=== PATIENT | female | born 1990 | race American Indian/Alaskan Native ===

== ENCOUNTER 2021-02-27 14:56 | Emergency (ER) | payer SELFPAY ==
[2021-02-27 15:02] VITALS: BP 117/80
== END 2021-02-27 22:20 | disposition left against medical advice (07) ==
LOC: ED 14:56
DX: K85.90 Acute pancreatitis without necrosis or infection, unspecified (principal); R11.2 Nausea with vomiting, unspecified; Z53.21 Procedure and treatment not carried out due to patient leaving prior to being seen by health care provider

== ENCOUNTER 2021-03-03 05:24 | Emergency (ER) | payer SELFPAY ==
[2021-03-03] MEDS ORDERED: LORazepam 2 MG/ML VIAL IV ONE (08:21)
[2021-03-03] MEDS ORDERED: SODIUM CHLORIDE 0.9% 1000 ML 1,000 ML IV ONE (08:21)
[2021-03-03] MEDS ORDERED: diphenhydrAMINE 50 MG/ML VIAL IV ONE (08:21)
[2021-03-03] MEDS ORDERED: PROCHLORPERAZINE EDISYLATE 10 MG/2 ML VIAL IV ONE (08:21)
--- NOTE | 2021-03-03 08:26 | Emergency Department Report ---
ED Abdominal Pain HPI - General Chief Complaint: Abdominal Pain Stated Complaint: ABD PAIN Time Seen by Provider: 03/03/21 08:18 Source: EMS Mode of arrival: Ambulatory Limitations: No Limitations - History of Present Illness Initial Comments: 30 year old female with hx of recurrent pancreatitis presents to ED with complaints of severe LUQ abdominal pain. Patient states that her symptoms started about 7 days ago. She thinks its her pancreatitis but unsure. She reports associated n/v and in ability to keep anything down. She states that her last BM was this morning and normal. She denies any UTI or abnl vag symptoms. She denies fever or chills. She states she does not drink and never drank. She denies ilicit drug use. She denies any abdominal surgery. She states that she is unclear of the cause of her recurrent pancreatitis. She states that she recently moved here from [place] about 2 months ago, and has not been able to establish with a PCP or GI specialist as yet because she has been working on trying to get insurance. She states that she did have a colonoscopy and an endoscopy by the GI specialist she was seen in [place]. Only abnormality found was that she was H. pylori positive. She states H pylori was not treated because she is allergic to multiple medications including multiple antibiotics. Patient was here 4 days ago for similar abdominal pain but she states that she did not wait because the wait was too long. She left this ER went to [facility] where she received IV fluids and had labs done. She states that they did do a CT but she did not wait for the results because she was still in pain and decided to leave and go home. MD Complaint: abdominal pain -: days(s) (2) Severity scale (0 -10): 10 - Related Data Previous Rx's Medication Instructions Recorded Last Taken Type Famotidine [Pepcid] 20 mg PO BID #30 tablet 03/03/21 Unknown Rx HYDROcodone/APAP 5-325 [Lander 1 each PO Q4HR PRN #10 tablet 03/03/21 Unknown Rx 5/325] Ondansetron [Zofran Odt] 4 mg PO Q8HR #15 tab.rapdis 03/03/21 Unknown Rx Pantoprazole [Protonix] 40 mg PO QDAY #30 tablet 03/03/21 Unknown Rx Allergies Allergy/AdvReac Type Severity Reaction Status Date / Time morphine Allergy Severe Swelling Verified 02/27/21 15:05 amoxicillin Allergy Intermediate Hives Verified 02/27/21 15:05 clarithromycin Allergy Intermediate Vomiting Verified 02/27/21 15:05 haloperidol [From Haldol] Allergy Intermediate Hives Verified 02/27/21 15:05 ketorolac [From Toradol] Allergy Intermediate Hives Verified 02/27/21 15:05 metronidazole [From Flagyl] Allergy Intermediate Vomiting Verified 02/27/21 15:05 NSAIDS (Non-Steroidal Allergy Intermediate Hives Verified 02/27/21 15:05 Anti-Inflamma Penicillins Allergy Intermediate Hives Verified 02/27/21 15:02 sulfamethoxazole Allergy Intermediate Vomiting Verified 02/27/21 15:05 [From Bactrim] tramadol Allergy Intermediate Hives Verified 02/27/21 15:05 trimethoprim [From Bactrim] Allergy Intermediate Vomiting Verified 02/27/21 15:05 nsaids Allergy Intermediate Hives Uncoded 02/27/21 15:05 ED Review of Systems ROS: Stated complaint: ABD PAIN Other details as noted in HPI Comment: All other systems reviewed and negative Constitutional: denies: chills, fever Eyes: denies: eye pain, eye discharge, vision change Respiratory: denies: cough, shortness of breath, SOB with exertion, SOB at rest, wheezing Cardiovascular: denies: chest pain, palpitations, dyspnea on exertion, edema, syncope, paroxysmal nocturnal dyspnea Gastrointestinal: abdominal pain, nausea, vomiting. denies: diarrhea, constipation, hematemesis, melena, hematochezia Genitourinary: denies: urgency, dysuria, frequency, hematuria, discharge, abnormal menses, dyspareunia Musculoskeletal: denies: back pain, joint swelling, arthralgia, myalgia Skin: denies: rash, lesions, change in color, change in hair/nails, pruritus Neurological: denies: headache, weakness, numbness, paresthesias, confusion, abnormal gait, vertigo ED Past Medical Hx - Past Medical History Additional medical history: pancreatitis - Surgical History Past Surgical History?: Yes - Medications Home Medications: Home Medications Medication Instructions Recorded Confirmed Last Taken Type Famotidine [Pepcid] 20 mg PO BID #30 tablet 03/03/21 Unknown Rx HYDROcodone/APAP 5-325 [Lander 1 each PO Q4HR PRN #10 tablet 03/03/21 Unknown Rx 5/325] Ondansetron [Zofran Odt] 4 mg PO Q8HR #15 tab.rapdis 03/03/21 Unknown Rx Pantoprazole [Protonix] 40 mg PO QDAY #30 tablet 03/03/21 Unknown Rx ED Physical Exam - General Limitations: No Limitations General appearance: alert, anxious, in distress, other (patient writhing in pain) - Head Head exam: Present: atraumatic, normocephalic, normal inspection - Eye Eye exam: Present: normal appearance, PERRL, EOMI Pupils: Present: normal accommodation - ENT ENT exam: Present: mucous membranes dry - Neck Neck exam: Present: normal inspection, full ROM - Respiratory Respiratory exam: Absent: respiratory distress - Cardiovascular Cardiovascular Exam: Present: regular rate, normal rhythm, normal heart sounds - GI/Abdominal GI/Abdominal exam: Present: soft. Absent: distended, tenderness, guarding, rebound - Neurological Exam Neurological exam: Present: alert, oriented X3, CN II-XII intact, normal gait - Psychiatric Psychiatric exam: Present: normal affect, normal mood - Skin Skin exam: Present: intact ED Course Vital Signs 03/03/21 03/03/21 05:31 12:10 Temperature 97.3 F L 97.8 F Pulse Rate 95 H 90 Respiratory 18 16 Rate Blood Pressure 196/93 130/90 [Left] O2 Sat by Pulse 98 100 Oximetry ED Medical Decision Making - Lab Data Result diagrams: 03/03/21 08:37 03/03/21 08:37 - Radiology Data Radiology results: report reviewed Patient: LISA CLARK MR#: [id number] : 1990 Acct:[id number] Age/Sex: 30 / F ADM Date: 03/03/21 Loc: ED Attending Dr: Ordering Physician: FAYE HARRELL Date of Service: 03/03/21 Procedure(s): CT abdomen pelvis w con Accession Number(s): [id number] cc: FAYE HARRELL CT ABDOMEN AND PELVIS WITH CONTRAST HISTORY: Severe abd pain/n/v/hx pancreatitis OMNI 300 100 ML COMPARISON: None TECHNIQUE: Routine abdominal and pelvic CT exam performed following intravenous contrast administration.. All CT scans at this location are performed using CT dose r eduction for ALARA by means of automated exposure control. FINDINGS: CT ABDOMEN: Lung Bases: No significant abnormality. Liver: No significant abnormality. Biliary: No significant abnormality. Spleen: No significant abnormality. Unenlarged. Pancreas: No significant abnormality. Adrenals: No significant abnormality. Kidneys: No significant abnormality. Lymphatics: No lymphadenopathy. Vasculature: No significant abnormality. Bowel/Peritoneum: No significant abnormality. No free air. No free fluid. CT PELVIC: : No significant abnormality. Lymphatics: No lymphadenopathy. Osseous Structures: No aggressive appearing osseous lesions. Additional Findings: None IMPRESSION: 1. No acute findings or findings to explain the patient's symptoms. Signer Name: Josh Preston MD Signed: 03/03/2021 10:54 AM Workstation Name: [id number] Transcribed By: SAUL Dictated By: Josh Preston MD Electronically Authenticated By: Josh Preston MD Signed Date/Time: 03/03/21 105 DD/ 105 TD/TT: - Medical Decision Making All labs reviewed and unremarkable. CT abd and pelvis negative for anything acute. Patient now resting comfortably after IV fluids, ativan, compazine and benadryl. She has not had any more vomiting during stay. Her repeat VS are stable. Exact cause of her symptoms at this time unclear. Discussed all results with patient. At this time there is no indication for admission, specialist consult or admission. Patient wanted to be admitted but explained to patient that at this time there is no indication for admission. She will be given meds for pain, nausea and vomiting and also H2 janna/and PPI and she will be given referral to GI and PCP for further eval. Patient was stable at time of d/c. Critical care attestation.: If time is entered above; I have spent that time in minutes in the direct care of this critically ill patient, excluding procedure time. ED Disposition Clinical Impression: Abdominal pain Disposition: HOME / SELF CARE / HOMELESS Is pt being admited?: No Does the pt Need Aspirin: No Condition: Stable Instructions: Abdominal Pain, Adult, [id number], Abdominal Pain (ED) Additional Instructions: Take the zofran ODT and the phenergan suppository as prescribed to help with nausea and vomiting. Take the norco as prescribed to help with your pain. Take the protonix and the pepcid as prescribed. Continue drink lots of fluids. It is important that you follow up with PCP and GI specialist listed on your discharge instructions. Return to ED if worse. Prescriptions: HYDROcodone/APAP 5-325 [Lander 5/325] 1 each PO Q4HR PRN #10 tablet PRN Reason: Pain Famotidine [Pepcid] 20 mg PO BID #30 tablet Pantoprazole [Protonix] 40 mg PO QDAY #30 tablet Ondansetron [Zofran Odt] 4 mg PO Q8HR #15 tab.rapdis Referrals: PRIMARY CAREMD [Primary Care Provider] - 3-5 Days PEPE MARINO MD [Staff Physician] - 3-5 Days [facility] [Provider Group] - 3-5 Days Forms: Work/School Release Form(ED) Time of Disposition: 11:25
[2021-03-03 08:59] LABS: Basophils # (Auto) 0.1 K/mm3 (0.0-0.1); Basophils % (Auto) 0.5 % (0.0-1.8); Eosinophils % (Auto) 0.3 % (0.0-4.3); Hematocrit 40.6 % (30.3-42.9); Hemoglobin 12.7 gm/dl (10.1-14.3); Lymphocytes # (Auto) 0.9 K/mm3 (1.2-5.4); Lymphocytes % (Auto) 8.5 % (13.4-35.0); Mean Corpuscular HGB Conc 31 % (30-34); Mean Corpuscular Volume 87 fl (79-97); Monocytes # (Auto) 0.2 K/mm3 (0.0-0.8); Platelet Count 287 K/mm3 (140-440); Red Blood Count 4.69 M/mm3 (3.65-5.03)
[2021-03-03 09:15] LABS: Alanine Aminotransferase 14 units/L (7-56); Albumin 4.6 g/dL (3.9-5); BUN/Creatinine Ratio 19; Blood Urea Nitrogen 15 mg/dL (7-17); Calcium 9.2 mg/dL (8.4-10.2); Hemolysis Index 26
--- NOTE | 2021-03-03 11:09 | Cat Scan Report ---
CT ABDOMEN AND PELVIS WITH CONTRAST HISTORY: Severe abd pain/n/v/hx pancreatitis OMNI 300 100 ML COMPARISON: None TECHNIQUE: Routine abdominal and pelvic CT exam performed following intravenous contrast administrat ion.. All CT scans at this location are performed using CT dose reduction for ALARA by means of autom ated exposure control. FINDINGS: CT ABDOMEN: Lung Bases: No significant abnormality. Liver: No significant abnormality. Biliary: No significant abnormality. Spleen: No significant abnormality. Unenlarged. Pancreas: No significant abnormality. Adrenals: No significant abnormality. Kidneys: No significant abnormality. Lymphatics: No lymphadenopathy. Vasculature: No significant abnormality. Bowel/Peritoneum: No significant abnormality. No free air. No free fluid. CT PELVIC: : No significant abnormality. Lymphatics: No lymphadenopathy. Osseous Structures: No aggressive appearing osseous lesions. Additional Findings: None IMPRESSION: 1. No acute findings or findings to explain the patient's symptoms. Signer Name: Josh Preston MD Signed: 03/03/2021 10:54 AM Workstation Name: [id number]
[2021-03-03 12:18] VITALS: BP 130/90
== END 2021-03-03 12:18 | disposition home or self-care (01) ==
LOC: ED 05:24
DX: R10.12 Left upper quadrant pain (principal); R11.2 Nausea with vomiting, unspecified
CPT/HCPCS: 36415; 74177; 80053; 83690; 84703; 85025; 96374; 96375; 99284; J0780; J1200; J2060; J7030; Q9967; Q0162